=== PATIENT | male | born 1955 ===

== ENCOUNTER 2024-06-20 01:28 | Emergency (ER) | payer MEDICARE ==
[2024-06-20] MEDS ORDERED: INSULIN REGULAR 100 UNIT/ML VIAL (IV) ONE ×2 (05:42→05:50)
--- NOTE | 2024-07-23 09:27 | XR ---
Patient Pernell Dickens ID [id number] Order # EXAMINATION TYPE: XR abdomen 1V DATE OF EXAM: 06/20/2024 COMPARISON: No comparison available on downtime PACS. INDICATION: Unable to urinate or defecate for several days TECHNIQUE: Single view abdomen upright view FINDINGS: There is a normal bowel gas pattern. Small amount of fecal debris is at the distal colon and in the a scending colon. Some mild fecal debris is through the nondilated transverse colon. Psoas margins are normal. No organomegaly is present. IMPRESSION: 1. Mild fecal retention.
== END 2024-06-20 10:49 | disposition home or self-care (01) ==
LOC: EC 01:28
CPT/HCPCS: 51798; 74018; 99283

== ENCOUNTER 2024-06-22 08:55 | Emergency (ER) | payer MEDICARE | END 2024-06-22 10:30 | disposition home or self-care (01) | LOC: EC 08:55 | DX: T83.018A Breakdown (mechanical) of other urinary catheter, initial encounter (principal) | CPT/HCPCS: 99283 ==